=== PATIENT | male | born 1975 | race Two or more races ===

== ENCOUNTER 2020-12-10 20:44 | Emergency (ER) | payer OTHER ==
[~2020-12-10] VITALS: Ht 177.8 cm; Wt 82.6 kg
[2020-12-10] MEDS ORDERED: FINASTERIDE1 MG PO (20:50)
== END 2020-12-11 00:06 | disposition home or self-care (01) ==
LOC: ER 20:44
DX: N20.1 Calculus of ureter (principal); R10.32 Left lower quadrant pain